=== PATIENT | male | born 1965 | race Caucasian/White ===

== ENCOUNTER 2018-08-30 00:14 | Emergency (ER) | payer OTHER ==
[~2018-08-30] VITALS: Ht 170.2 cm; Wt 88.5 kg
[2018-08-30 00:19] VITALS: Ht 170.2 cm; Wt 88.5 kg
[2018-08-30 01:28] VITALS: BP 141/98
== END 2018-08-30 01:30 | disposition home or self-care (01) ==
LOC: ED 00:14
DX: M10.072 Idiopathic gout, left ankle and foot (principal)
CPT/HCPCS: J1885